=== PATIENT | female | born 1945 | race Caucasian/White ===

== ENCOUNTER → 2016-11-22 | Outpatient (CLI) | payer MEDICARE ==
--- NOTE | 2016-11-22 14:34 | REP ---
Clinical: Pain and swelling with venous insufficiency. Technique: Suazo scale and color Doppler evaluation using linear high frequency transducer including reflux study. Findings: Ultrasound examination of the right and left lower extremity deep venous structures from the common femoral vein to the popliteal vein demonstrates normal compressibility flow and wave patterns in response to respiration and augmentation. There is no evidence for deep venous thrombosis. Reflux study demonstrates normal patency bilaterally and no evidence for deep or superficial reflux Impression: No evidence for deep venous thrombosis. No reflux. Signed by Don Graves MD 11/22/2016 02:27 P
== END ==
LOC: M RAD 12:28
PROVIDERS: ATTEND Registered Nurse
DX: I83.893 Varicose veins of bilateral lower extremities with other complications (principal)

== ENCOUNTER → 2017-03-10 | Outpatient (REF) | payer MEDICARE | LOC: M LAB REF 09:15 | DX: L57.0 Actinic keratosis (principal) ==

== ENCOUNTER → 2017-05-02 | Outpatient (REF) | payer MEDICARE | LOC: M LAB REF 11:20 | DX: L82.1 Other seborrheic keratosis (principal) ==

== ENCOUNTER → 2017-07-17 | Outpatient (REF) | LOC: M LAB REF 14:15 | PROVIDERS: ATTEND Registered Nurse | DX: L82.1 Other seborrheic keratosis (principal) ==